=== PATIENT | male | born 1940 | race Caucasian/White ===

== ENCOUNTER 2019-04-18 08:30 | Outpatient (CLI) | payer MEDICARE ==
--- NOTE | 2019-04-18 09:08 | RAD ---
EXAM: Single view of the abdomen HISTORY: History of kidney stones with abdominal pain COMPARISON: None FINDINGS: Single view of the abdomen shows a nonspecific, nonobstructive bowel gas pattern. Small pun ctate calcifications project over both renal shadows. Surgical clips are seen in the pelvis. The bones are unremarkable. IMPRESSION: Bilateral nephrolithiasis
== END 2019-04-18 08:31 | disposition home or self-care (01) ==
LOC: MADRAD 08:30
PROVIDERS: ATTEND Urology
DX: N20.0 Calculus of kidney (principal); Z87.442 Personal history of urinary calculi
CPT/HCPCS: 74018